=== PATIENT | male | born 1970 | race Caucasian/White ===

== ENCOUNTER 2025-02-14 05:07 | Emergency (ER) | payer OTHER, SELFPAY ==
[2025-02-14] VITALS (17 sets, daily range): BP systolic 116–167; BP diastolic 78–122; BMI 31.1
[2025-02-14] MEDS: NSS 1000 IV (05:37)
[2025-02-14 05:49] LABS: Hematocrit 43.0 % (39.0-52.0); Hemoglobin 15.6 g/dL (13.0-18.0); Mean Corp Hgb Conc. 36.3 g/dL (33.0-37.0); Mean Corpuscular Volume 87.2 fL (80.0-94.0); Nucleated Red Blood Cells % 0 % (-); Platelet Count 285 10^3/uL (130-400); Red Cell Dist. Width 12.0 % (11.5-14.5)
[2025-02-14] MEDS: CARDIZEM 20 MG IV ×2 (05:49→06:33)
[2025-02-14 06:09] LABS: ALT (SGPT) 68 U/L (0-50); AST (SGOT) 52 U/L (17-59); Albumin 4.7 g/dl (3.5-5.0); Alkaline Phosphatase 88 U/L (38-126); Blood Urea Nitrogen 16 mg/dl (9-20); Calcium 9.8 mg/dl (8.4-10.2); Carbon Dioxide 19 mmol/L (22-30); Chloride 109 mmol/L (98-107); Estimated Creatinine Clearance 122 ml/min; Glucose 142 mg/dl (70-99); Potassium 3.5 mmol/L (3.5-5.1); Sodium 140 mmol/L (135-145); Total Protein 7.9 g/dl (6.3-8.2); eGFR > 60.00
[2025-02-14 06:28] LABS: Troponin I 0.041 ng/ml
--- NOTE | 2025-02-14 06:28 | ED.GENMED ---
History of Present Illness
General
Chief Complaint: Heart Rate Problem
Source: patient
Time Seen by Provider: 02/14/25 06:15
History of Present Illness
History of Present Illness:
54-year-old male presents to the emergency room complaining of palpitations, feeling dizzy. Symptoms began at about 4 AM. He also developed diaphoresis. Patient felt at times like he might pass out. Patient states that he and his went out
to dinner last night he came home feeling well totally fine. He does endorse smoking about a pack a day. He drinks about 6 or 7 hard iced teas or similar beverages a day. Patient also endorses the use of THC Gummies. Patient had a similar
episode of rapid heart rate a month or so ago which was brief and self-limited.
Past History
Past History
ED Past Medical History: None
ED Past Surgical History: Orthopedic
Social History
Tobacco: Smoker
Alcohol: Daily
Drug: Marijuana
Personal:
Living: with family
Employment: Employed
Phy Exam
Physical Exam
Physical Exam:
General: Awake, Alert, Oriented X3. No acute distress.
Vitals: unremarkable
Head: Atraumatic
Eyes: Pupils equal, EOMI
Throat: Airway intact, no exudates
Neck: Trachea midline
Lungs: Clear and equal b/l
Heart: Tachycardic, regular rate, no murmurs
Abd: Soft, Nontender, No pulsatile mass
Neuro: Nonfocal
Skin: Warm, dry, no rash
Extremities: pulses equal b/l, no edema
Scores
[id number] Score for Afib Stroke Risk
Age in Years (65=0, 65-74=1, >/=75=2): <65
Sex (Female=+1): Male
Congestive Heart Failure History (Yes=+1): No
Hypertension History (Yes=+1): Yes
Stroke/TIA/Thromboembolism History (Yes=+2): No
Vascular Disease History (Yes=+1): No
Diabetes Mellitus (Yes=+1): No
Score: 1
Anticoagulation Recommendations: Consider anticoagulation (as validated in nonvalvular fib)
Course
Orders/Labs/Results
Orders:
Orders
02/14/25 05:10
ECG [Electrocardiogram (*1)] Urgent
Reason for Study: Chest Pain
02/14/25 05:11
EKG- Treatment ONCE
02/14/25 05:35
CBC/With Diff [Complete Blood Count/With Diff] Urgent
CMP [Comprehensive Metabolic Panel] Urgent
TSH Reflex To Free T4 Urgent
Comment: ADD ON
Troponin I Urgent
02/14/25 05:37
0.9% Sodium Chloride 1000 ml [Nss] 1,000 ml IV BOLUS
02/14/25 05:48
Diltiazem HCl [Cardizem] 20 mg IV NOW STA
Diltiazem HCl [Cardizem] 25 mg .ROUTE .STK-MED ONE
02/14/25 06:27
Diltiazem HCl [Cardizem] 20 mg IV NOW STA
02/14/25 06:31
Add On- LAB Urgent
Tests Added?: TSH w reflex T4
02/14/25 07:15
Propofol [Diprivan] 20 ml .ROUTE .STK-MED
02/14/25 07:33
EKG [Electrocardiogram (*1)] Urgent
Reason for Study: Atrial Fibrillation
EKG- Treatment ONCE
02/14/25 08:27
Apixaban [Eliquis] 5 mg PO NOW STA
Abnormal Lab Results
02/14/25
05:35
MCH 31.6 H pg
(27.0-31.0)
Absolute Lymphs (auto) 3.9 H 10^3/uL
(1.2-3.4)
Absolute Monos (auto) 0.9 H 10^3/uL
(0.1-0.6)
Chloride 109 H mmol/L
(98-107)
Carbon Dioxide 19 L mmol/L
(22-30)
Glucose 142 H mg/dl
(70-99)
ALT 68 H U/L
(0-50)
Troponin I 0.041 H* ng/ml
02/14/25 05:35
02/14/25 05:35
Vital Signs
Initial and Last Documented VS:
Initial Vital Signs
Temp Pulse Resp Pulse Ox
97.3 F 153 26 98
02/14/25 05:16 02/14/25 05:16 02/14/25 05:16 02/14/25 05:16
Last Documented Vital Signs
Temp Pulse Resp BP Pulse Ox
98.1 F 69 20 167/87 96
02/14/25 09:08 02/14/25 09:08 02/14/25 09:08 02/14/25 09:08 02/14/25 09:08
Procedures
Cardioversion
Indication:: Afib
Synchronized?: Yes
Energy Used: 200 joules
Number of attempts: 2
Successful?: Yes
ASA Risk Score: Class II
Any reaction or bad outcome to prior sedation/anesthesia?: No history of a reaction
Sedation level to be attained: moderate
Chart and allergies reviewed: Yes
Patient reassessed prior to sedation: Yes
Time out completed at (validating right patient & procedure): 07:35
History of difficult intubation: No
Airway free of obstruction: Yes
Patient has a gag reflex: Yes
Patient is able to open mouth: Yes
Patient has no dentures: Yes
Patient has no loose teeth: Yes
Medication administered by Provider during Moderate Sedation: IV Propofol (mg)
Total dose administered: 140
Time drug administered: 07:35
Start Time: 07:35
Stop Time: 07:45
MDM/Problems Addressed
Differential Diagnosis Includes:
Paroxysmal atrial fibrillation, SVT, frequent PACs, sinus tachycardia
MDM/Problems Addressed:
Patient presents with A-fib with rapid ventricular response. Patient initially treated with bolus of Cardizem and an infusion. This did control his rate but he did not convert to sinus rhythm. After a fairly long period of observation the
decision was made to proceed with cardioversion. Patient is a candidate for cardioversion because he is less than 65 and cannot distinctly identify the onset of his symptoms is the middle the night tonight. Patient is agreeable to continue
anticoagulation for the next 2 weeks. Patient was successfully cardioverted but it did take 2 shocks. He was having short runs of A-fib even after the second shot but ultimately stayed in sinus rhythm. Patient given contact information for
cardiology follow-up.
*Pulse Oximetry
SaO2: 96
Oxygen Mode of Delivery: Room air
Patient hypoxic: no
*EKG
Interpreted by ED Provider?: Yes
Interpretation: abnormal
Heart Rate: 145
Rate: tachycardiac
Rhythm: a-fib
[place]: normal axis
Interval: normal interval
QRS Pattern: normal QRS
Ischemia: ST depression (Mild lateral ST depression)
*Box Sealing Machine [employer]cher Interpretation
Rate: tachycardiac
Interpretation: abnormal
Rhythm: a-fib
*Critical Care Note
Total Time (30-74mins, 75-104mins- exclusive of procedures): Not Applicable
ED Attending Note
-
Portions of this chart may have been created with voice recognition software.� Occasional wrong word or��sound alike� substitutions may have occurred due to the inherent limitations of voice recognition software.
Discharge Plan
Departure
Patient Disposition: Home (Routine Discharge)
Date of Disposition: 02/14/25
Time of Disposition: 08:24
Patient with high blood pressure during this ER visit?: Yes
Condition: Good
Discharge Problem:
Paroxysmal atrial fibrillation with rapid ventricular response
Instructions: Atrial Fibrillation (DC), Sedation for procedures in adults - ED discharge instructions, BLOOD PRESSURE
Prescriptions:
New
Eliquis 5 mg tablet
5 mg PO BID Qty: 28 0RF
losartan 100 mg tablet
100 mg PO DAILY Qty: 30 0RF
No Action
fluticasone propionate 50 mcg/actuation [place],Suspension
1 spray INTRANASAL BID PRN (Reason: allergies)
tadalafil 20 mg Tablet
20 mg PO DAILY PRN (Reason: erectile dysfunction)
omega [id number] oil [Fish Oil] 1,000 mg (120 mg-180 mg) Capsule
1 cap PO .LUNCHTIME
losartan 100 mg Tablet
100 mg PO DAILY Qty: 30 0RF
carvedilol [Coreg] 6.25 mg tablet
6.25 mg PO BID Qty: 60 0RF
Referrals:
Salvatore Alves MD [Active, Cardiology]
UNKNOWN - PT DOES,NOT KNOW [Family Provider]
Interventions
Interventions:
*Risk Screen - Suicide Last Done: 02/14/25 05:16
*General Assessment Last Done: 02/14/25 05:16
*Neglect/Abuse Screening Last Done: 02/14/25 05:16
*ED- Fall Risk Assessment Last Done: 02/14/25 05:32
*ED COVID-19 Vaccine History Last Done: 02/14/25 05:32
*Nursing Disposition Last Done: 02/14/25 09:08
ED- Cardiac Assessment Last Done: 02/14/25 05:54
ED- Pulmonary Assessment Last Done: 02/14/25 05:54
Discharge Date and Time
Discharge Date/Time: 02/14/25 08:45
Print Language: SINHALA
[2025-02-14] MEDS: ELIQUIS 5 MG PO (08:35)
== END 2025-02-14 08:45 | disposition home or self-care (01) ==
LOC: EMR 05:07
PROVIDERS: Student in an Organized Health Care Education/Training Program; EMERGENCY PHYSICIAN Emergency Medicine
DX: R00.2 Palpitations (principal); F17.210 Nicotine dependence, cigarettes, uncomplicated
CPT/HCPCS: 99284; 92960; 96374; 96376; 96361; 80053; 84443; 84484; 85025; 93005